=== PATIENT | male | born 1980 | race Caucasian/White ===

== ENCOUNTER 2016-10-12 19:48 | Emergency (ER) | payer SELFPAY | END 2016-10-12 20:57 | disposition left against medical advice (07) | LOC: UCCORT 19:48 | DX: R21 Rash and other nonspecific skin eruption (principal); Z53.21 Procedure and treatment not carried out due to patient leaving prior to being seen by health care provider ==

== ENCOUNTER 2016-10-16 18:41 | Emergency (ER) | payer BC ==
[2016-10-16 19:11] VITALS: BP 131/82
--- NOTE | 2016-10-16 19:34 | UC ---
Skin Complaint HPI - HPI Summary HPI Summary: skin rash on both arms leg and thigh for the past fe weeks, right arm has some blisters with oozing noted - History of Current Complaint Chief Complaint: UCSkin Time Seen by Provider: 10/16/16 19:14 Stated Complaint: SKIN COMPLAINT Hx Obtained From: Patient Onset/Duration: Gradual Onset, Lasting Weeks Skin Exposure Onset/Duration: Weeks Ago Timing: Constant Onset Severity: Mild Current Severity: Severe Pain Intensity: 8 Pain Scale Used: 0-10 Numeric Location: Diffuse Character: Swelling, Pruritus, Hives, Redness, Raised Aggravating: Nothing Alleviating: Nothing - Allergy/Home Medications Allergies/Adverse Reactions: Allergies Allergy/AdvReac Type Severity Reaction Status Date / Time No Known Allergies Allergy Verified 10/16/16 19:11 Review of Systems Skin: Rash Eyes: Negative ENT: Negative Respiratory: Negative Cardiovascular: Negative Gastrointestinal: Negative Genitourinary: Negative Motor: Negative Neurovascular: Negative Musculoskeletal: Negative Neurological: Negative Psychological: Negative All Other Systems Reviewed And Are Negative: Yes PMH/Surg Hx/FS Hx/Imm Hx Previously Healthy: Yes - Surgical History Surgical History: None - Family History Known Family History: Negative: Cardiac Disease, Hypertension - Social History Alcohol Use: Occasionally Substance Use Type: None Smoking Status (MU): Never Smoked Tobacco Physical Exam Triage Information Reviewed: Yes Appearance: Well-Appearing, Well-Nourished, Pain Distress Vital Signs: Initial Vital Signs Temp 98.2 F 10/16/16 19:07 Pulse 60 10/16/16 19:07 Resp 16 10/16/16 19:07 BP 131/82 10/16/16 19:07 Pulse Ox 100 10/16/16 19:07 Vital Signs Reviewed: Yes Eye Exam: Normal Eyes: Positive: Conjunctiva Clear ENT Exam: Normal Dental Exam: Normal Neck exam: Normal Neck: Positive: Supple, Nontender, No Lymphadenopathy Respiratory Exam: Normal Respiratory: Positive: Chest non-tender, Lungs clear, Normal breath sounds Cardiovascular Exam: Normal Cardiovascular: Positive: RRR, No Murmur, Pulses Normal Abdominal Exam: Normal Musculoskeletal Exam: Normal Neurological Exam: Normal Psychological Exam: Normal Skin: Positive: rashes - blistered, erythemic rash on right forearm, left forarm right leg and thigh. Course/Dx - Course Course Of Treatment: hx obtained, exam performed, wound culture obtained from oozing blisters on right forearm, steroid cream prescribed for rash - Differential Diagnoses - Skin Complaint Differential Diagnoses: Cellulitis, Contact Dermatitis, Eczema, Scabies, Urticaria - Diagnoses Provider Diagnoses: dishydrotic ezcema Discharge - Discharge Plan Condition: Stable Disposition: HOME Prescriptions: Betamethasone Dipropionate Aug [Augmented Betamethasone D] 0.05 % TOPICAL BID # 1 tube Patient Education Materials: Dyshidrotic Eczema (ED) Additional Instructions: use the bream twice a day for two weeks, then on weekends until clear. follow up with any worsening symptoms
== END 2016-10-16 19:45 | disposition home or self-care (01) ==
LOC: UCCORT 18:41
DX: L30.1 Dyshidrosis [pompholyx] (principal)
CPT/HCPCS: 87070; 87205; 99212; G0463

== ENCOUNTER 2018-03-05 07:45 | Emergency (ER) | payer BC, OTHER ==
[2018-03-05 08:04] VITALS: BP 128/78
--- NOTE | 2018-03-05 08:22 | UC ---
Hand/Wrist HPI - HPI Summary HPI Summary: Was backing up with a tugger and hit thumb on a pallet. Happened yesterday about 11 AM. Has had bleeding off and on. - History Of Current Complaint Chief Complaint: UCUpperExtremity Stated Complaint: W/C LEFT THUMB INJURY Time Seen by Provider: 03/05/18 08:14 Hx Obtained From: Patient Onset/Duration: Sudden Onset, Lasting Days - 1, Still Present Severity Initially: Moderate Severity Currently: Mild Pain Intensity: 0 Character Of Pain: Sharp, Throbbing Aggravating Factor(s): Movement Alleviating Factor(s): Rest, Ice Associated Signs And Symptoms: Positive: Swelling, Bruising, Other - persistent bleeding Related History: Dominant Hand Right - Allergies/Home Medications Allergies/Adverse Reactions: Allergies Allergy/AdvReac Type Severity Reaction Status Date / Time No Known Allergies Allergy Verified 03/05/18 07:59 PMH/Surg Hx/FS Hx/Imm Hx Previously Healthy: Yes - Surgical History Surgical History: None - Family History Known Family History: Negative: Cardiac Disease, Hypertension, Diabetes - Social History Occupation: Employed Full-time Lives: Alone Alcohol Use: Occasionally Substance Use Type: None Smoking Status (MU): Never Smoked Tobacco Have You Smoked in the Last Year: No Review of Systems Constitutional: Negative Is Patient Immunocompromised?: No All Other Systems Reviewed And Are Negative: Yes Physical Exam Triage Information Reviewed: Yes Appearance: Well-Appearing, Well-Nourished, Pain Distress - mild Vital Signs: Initial Vital Signs Temp 97.7 F 03/05/18 08:00 Pulse 60 03/05/18 08:00 Resp 16 03/05/18 08:00 BP 128/78 03/05/18 08:00 Pulse Ox 100 03/05/18 08:00 Vital Signs Reviewed: Yes Eyes: Positive: Conjunctiva Clear Neck exam: Normal Respiratory Exam: Normal Cardiovascular Exam: Normal Musculoskeletal: Positive: ROM Limited @ - left thumb IP joint, Other: - swelling, redness and warmth in the hoskins left thumb. Neurological Exam: Normal Psychological Exam: Normal Skin: Positive: Other - laceration left thumb. Procedures - Laceration/Wound Repair 1 Location: upper extremity - Left thumb Description: Linear Betadine Prep?: No Irrigated w/ Saline (ccs): 150 Laceration/Wound Explored: clean Closure: SteriStrips Hand/Wrist Course/Dx - Differential Dx/Diagnosis Differential Diagnosis/HQI/PQRI: Abrasion, Cellulitis, Fracture Provider Diagnoses: Open wound left thumb. Cellulitis left thumb Discharge - Sign-Out/Discharge Documenting (check all that apply): Patient Departure - Discharge Plan Condition: Stable Disposition: HOME Prescriptions: Cephalexin CAP* [Keflex 500 CAP*] 500 mg PO QID #28 cap Patient Education Materials: Steristrips (ED), Cellulitis (ED), Cephalexin (By mouth) Forms: *Work Release Referrals: Non Staff,Doctor [Primary Care Provider] - - Billing Disposition and Condition Condition: STABLE Disposition: Home Images Hands: 1 - 1.8 cm laceration, ragged
[2018-03-05] MEDS ORDERED: Tetan/Diph/Pertus SYR(Tdap)* 0.5 ML SYR(BOOSTRIX) use SYR IM ONE (08:23)
== END 2018-03-05 08:44 | disposition home or self-care (01) ==
LOC: UCCORT 07:45
DX: S61.012A Laceration without foreign body of left thumb without damage to nail, initial encounter (principal); L03.012 Cellulitis of left finger; W45.8XXA Other foreign body or object entering through skin, initial encounter; Y93.9 Activity, unspecified; Y99.9 Unspecified external cause status
CPT/HCPCS: 90471; 90715; 99212; G0463